=== PATIENT | male | born 1975 | race Caucasian/White ===

== ENCOUNTER → 2017-01-23 | Outpatient (CLI) | payer MEDICAID ==
--- NOTE | 2017-01-23 10:30 | XR ---
EXAMINATION TYPE: XR chest 2V DATE OF EXAM: 01/23/2017 COMPARISON: NONE TECHNIQUE: PA and lateral views submitted. HISTORY: Cough, fever and congestion FINDINGS: The lungs are clear and there is no pneumothorax, pleural effusion, or focal pneumonia. Curvature o f the spine noted. Biapical pleural thickening. IMPRESSION: 1. No acute process.
== END | disposition home or self-care (01) ==
LOC: RADXRMAIN 10:09
PROVIDERS: ATTEND Internal Medicine
DX: R06.02 Shortness of breath (principal)
CPT/HCPCS: 71020

== ENCOUNTER → 2017-02-20 | Outpatient (CLI) | payer MEDICAID ==
--- NOTE | 2017-02-20 10:22 | XR ---
Panorex History: Impacted tooth, K01.1 Panorex view is submitted No comparisons Impacted tooth noted on the right, last molar within the mandible. No air-fluid level within maxillar y sinuses, bone mineralization is maintained. IMPRESSION: Findings compatible with patient's history
== END | disposition home or self-care (01) ==
LOC: RADXRMAIN 09:12
DX: K01.1 Impacted teeth (principal)
CPT/HCPCS: 70355

== ENCOUNTER → 2017-07-19 | Outpatient (CLI) | payer MEDICAID ==
[2017-07-19 10:15] LABS: HCT 52.5 % (39.0-53.0); HGB 16.9 gm/dL (13.0-17.5); MCH 30.2 pg (25.0-35.0); MCHC 32.3 g/dL (31.0-37.0); MCV 93.6 fL (80.0-100.0); Mean Platelet Volume 7.3; Platelet Count 206 k/uL (150-450); RDW 12.7 % (11.5-15.5); WBC 7.5 k/uL (3.8-10.6)
[2017-07-19 10:39] LABS: ALT 42 U/L (21-72); AST 26 U/L (17-59); Albumin 4.3 g/dL (3.5-5.0); Alkaline Phosphatase 64 U/L (38-126); Anion Gap 8 mmol/L; Blood Urea Nitrogen 20 mg/dL (9-20); Calcium 9.7 mg/dL (8.4-10.2); Carbon Dioxide 26 mmol/L (22-30); Chloride 106 mmol/L (98-107); Cholesterol 248 mg/dL (<200); Glucose 98 mg/dL (74-99); HDL Cholesterol 56 mg/dL (40-60); LDL Cholesterol,Calculated 155 mg/dL (0-99); Potassium 4.7 mmol/L (3.5-5.1); Sodium 140 mmol/L (137-145); Total Bilirubin 0.8 mg/dL (0.2-1.3); Total Protein 7.5 g/dL (6.3-8.2); Triglycerides 183 mg/dL (<150)
== END | disposition home or self-care (01) ==
LOC: RADXRMAIN 08:34
PROVIDERS: ATTEND Family Medicine
DX: Z00.00 Encounter for general adult medical examination without abnormal findings (principal)
CPT/HCPCS: 36415; 80053; 80061; 85027

== ENCOUNTER → 2018-08-04 | Outpatient (CLI) | payer MEDICAID ==
[2018-08-04 08:14] LABS: HCT 50.2 % (39.0-53.0); HGB 16.2 gm/dL (13.0-17.5); MCH 30.2 pg (25.0-35.0); MCHC 32.2 g/dL (31.0-37.0); MCV 93.8 fL (80.0-100.0); Mean Platelet Volume 7.4; Platelet Count 206 k/uL (150-450); RBC 5.35 m/uL (4.30-5.90); RDW 13.2 % (11.5-15.5); WBC 7.4 k/uL (3.8-10.6)
[2018-08-04 08:41] LABS: Appearance,Urine Clear (Clear); Bilirubin,Urine Negative (Negative); Blood,Urine Negative (Negative); Color,Urine Yellow; Glucose,Urine (UA) Negative (Negative); Ketones,Urine Negative (Negative); Leukocyte Esterase,Urine Negative (Negative); Nitrite,Urine Negative (Negative); PH, Urine 5.5 (5.0-8.0); Protein,Urine Negative (Negative); Specific Gravity,Urine 1.017 (1.001-1.035); Urobilinogen,Urine <2.0 mg/dL (<2.0)
[2018-08-04 17:38] LABS: Albumin/Globulin Ratio 1.74 (1.20-2.10); Anion Gap 9.4 mmol/L (4.00-12.00); Calcium 8.6 mg/dL (8.7-10.3); Carbon Dioxide 24.6 mmol/L (21.6-31.8); Globulin 2.3 g/dL (1.6-3.3); LDL Cholesterol,Calculated 94.8 mg/dL (0.0-131.0); Potassium 4.3 mmol/L (3.5-5.5); Total Bilirubin 0.8 mg/dL (0.2-1.2); Total Protein 6.3 g/dL (6.2-8.2); VLDL Calculation 45.2 mg/dL (5.00-40.00)
== END | disposition home or self-care (01) ==
LOC: LABWHC1 07:24
PROVIDERS: ATTEND Family Medicine
DX: Z00.01 Encounter for general adult medical examination with abnormal findings (principal)
CPT/HCPCS: 36415; 80053; 80061; 81003; 85027

== ENCOUNTER → 2019-08-06 | Outpatient (CLI) | payer MEDICAID ==
[2019-08-06 07:39] LABS: HCT 47.2 % (39.0-53.0); HGB 15.9 gm/dL (13.0-17.5); MCH 31.3 pg (25.0-35.0); MCHC 33.7 g/dL (31.0-37.0); MCV 92.9 fL (80.0-100.0); Mean Platelet Volume 8.1; Platelet Count 238 k/uL (150-450); RBC 5.08 m/uL (4.30-5.90); RDW 12.6 % (11.5-15.5); WBC 6.2 k/uL (3.8-10.6)
[2019-08-06 12:02] LABS: African American GFR (CKD) 94.8 (60.0-200.0); Albumin 4.2 g/dL (3.80-4.90); Albumin/Globulin Ratio 1.91 (1.60-3.17); Anion Gap 7.7 mmol/L (4.00-12.00); BUN/Creat Ratio 21.82 Ratio (12.00-20.00); Carbon Dioxide 25.3 mmol/L (21.6-31.8); Chol/HDL Ratio 4.06; Globulin 2.2 g/dL (1.6-3.3); LDL Cholesterol,Calculated 113.6 mg/dL (0.0-131.0); Non-African American GFR(CKD) 81.8 (60.0-200.0); Potassium 4.2 mmol/L (3.5-5.5); Total Bilirubin 0.5 mg/dL (0.3-1.2); Total Protein 6.4 g/dL (6.2-8.2); VLDL Calculation 33.4 mg/dL (5.00-40.00)
== END | disposition home or self-care (01) ==
LOC: LABWHC1 07:05
PROVIDERS: ATTEND Family Medicine
DX: Z00.01 Encounter for general adult medical examination with abnormal findings (principal)
CPT/HCPCS: 36415; 80053; 80061; 85027

== ENCOUNTER → 2019-09-25 | Outpatient (CLI) | payer MEDICAID ==
--- NOTE | 2019-09-25 12:09 | XR ---
EXAMINATION TYPE: XR AC joint BILAT DATE OF EXAM: 09/25/2019 COMPARISON: NONE HISTORY: Pain TECHNIQUE: 2 views of the AC joints are submitted bilaterally with and without weights. FINDINGS: AC joint distance is within normal limits and symmetric. No hypertrophic spurring. May be s light elevation of the clavicle however it is symmetric and therefore likely normal in appearance. IMPRESSION: AC joint distance is a symmetric and within normal limits. No acute fracture or dislocati on. If symptoms persist consider MRI.
--- NOTE | 2019-09-25 12:12 | XR ---
EXAMINATION TYPE: XR cervical spine comp DATE OF EXAM: 09/25/2019 COMPARISON: NONE HISTORY: Pain TECHNIQUE: Four views are submitted. FINDINGS: The odontoid is intact. There are no compression deformities. The prevertebral soft tissue structur es are within normal limits. There is anterior hypertrophic spurring at C5-6 and C6-C7. Mild facet a rthropathy. IMPRESSION: 1. No acute process. Mild hypertrophic spurring C5-6 and C6-C7.
== END | disposition home or self-care (01) ==
LOC: RADXRMAIN 11:34
PROVIDERS: ATTEND Radiology Diagnostic Radiology
DX: M46.02 Spinal enthesopathy, cervical region (principal); M25.512 Pain in left shoulder; M25.511 Pain in right shoulder
CPT/HCPCS: 72050; 73050

== ENCOUNTER → 2019-11-28 | Outpatient (CLI) | payer MEDICAID ==
--- NOTE | 2019-11-28 10:21 | XR ---
EXAMINATION TYPE: XR shoulder complete RT , 3 VIEWS DATE OF EXAM ORDERED: 11/28/2019 HISTORY: PAIN. COMPARISON: None. FINDINGS: No fracture, dislocation or other acute osseous lesion is seen. The coracoclavicular dista nce is normal. IMPRESSION: NO ACUTE OSSEOUS ABNORMALITY.
== END | disposition home or self-care (01) ==
LOC: RADXRMAIN 09:30
PROVIDERS: ATTEND Physician Assistant
DX: M25.511 Pain in right shoulder (principal)

== ENCOUNTER → 2020-01-04 | Outpatient (CLI) | payer MEDICAID ==
--- NOTE | 2020-01-04 21:36 | MR ---
EXAMINATION TYPE: MR shoulder RT wo con DATE OF EXAM: 01/04/2020 COMPARISON: Plain film 11/28/2019 HISTORY: Rt shoulder pain, pushing injury/repetitive motion 4 months ago TECHNIQUE: Multiplanar, multisequence imaging of the right shoulder is performed without contrast. FINDINGS: Rotator Cuff: Thickened appearance, increased signal may be indicative of tendinosis Acromioclavicular Joint: Some arthropathy changes present causing some mass effect on the musculotend inous junction of supraspinatus. Distal acromion is downturned, small spur suspected Glenohumeral Joint: Intact Labrum: There is some increased signal associated with the superior labrum, there could be an underly ing SLAP lesion Biceps Tendon: The long head of biceps is in normal location within bicipital groove, fluid is presen t along the tendon. Bone marrow signal: Some fluid signal is present consistent with pseudocysts in the humeral head post eriorly Other: Fluid signal is present in the subacromial subdeltoid bursa IMPRESSION: Correlate for possible impingement with tendinosis. Difficult to exclude superior labral tear, SLAP l esion. Possible biceps tendinosis. Acromioclavicular joint arthropathy.
== END | disposition home or self-care (01) ==
LOC: RADMRIMAIN 17:58
PROVIDERS: ATTEND Orthopaedic Surgery
DX: M12.811 Other specific arthropathies, not elsewhere classified, right shoulder (principal)

== ENCOUNTER → 2020-08-04 | Outpatient (CLI) | payer MEDICAID ==
[2020-08-04 07:53] LABS: HCT 50.6 % (39.0-53.0); HGB 16.5 gm/dL (13.0-17.5); MCH 30.4 pg (25.0-35.0); MCHC 32.6 g/dL (31.0-37.0); MCV 93.2 fL (80.0-100.0); Mean Platelet Volume 7.5; Platelet Count 233 k/uL (150-450); RBC 5.43 m/uL (4.30-5.90); RDW 12.9 % (11.5-15.5); WBC 5.8 k/uL (3.8-10.6)
[2020-08-04 10:54] LABS: African American GFR (CKD) 105.6 (60.0-200.0); Albumin 4.2 g/dL (3.80-4.90); Albumin/Globulin Ratio 1.75 (1.60-3.17); Anion Gap 8.4 mmol/L (4.00-12.00); Calcium 9.1 mg/dL (8.7-10.3); Carbon Dioxide 25.6 mmol/L (21.6-31.8); Chol/HDL Ratio 4.48; Globulin 2.4 g/dL (1.6-3.3); LDL Cholesterol,Calculated 136.2 mg/dL (0.0-131.0); Non-African American GFR(CKD) 91.1 (60.0-200.0); Potassium 4.2 mmol/L (3.5-5.5); Total Bilirubin 0.6 mg/dL (0.2-1.2); Total Protein 6.6 g/dL (6.2-8.2); VLDL Calculation 30.8 mg/dL (5.00-40.00)
== END | disposition home or self-care (01) ==
LOC: LABWHC1 07:27
PROVIDERS: ATTEND Family Medicine
DX: Z00.01 Encounter for general adult medical examination with abnormal findings (principal)
CPT/HCPCS: 36415; 80053; 80061; 85027

== ENCOUNTER 2020-10-25 07:29 | Emergency (ER) | payer MEDICAID ==
[2020-10-25 07:52] VITALS: BP 127/89; PULSE 86; RESP 18; TEMP 98.3
[2020-10-25] MEDS ORDERED: ACETAMINOPHEN TAB 500 MG TAB PO STA (08:23)
[2020-10-25] MEDS ORDERED: DEXAMETHASONE SOD PHOSPHATE 10 MG/ML 1 ML VIAL IV STA (08:24)
--- NOTE | 2020-10-25 08:34 | ED ---
General Adult HPI - General Chief complaint: Fever Stated complaint: Covid+, worsening symptoms Time Seen by Provider: 10/25/20 08:09 Source: patient Mode of arrival: ambulatory Limitations: no limitations - History of Present Illness Initial comments: 45-year-old male with a past medical history of GERD presents to the emergency room for a chief complaint of not feeling well. Patient reports that he tested positive for Covid 12 days ago at [employer]. He is supposed to be going back to work but is not feeling better and is not sure to do. States that he is still getting fevers at night and has not been able to sleep well. He feels lightheaded at times. He thinks he is dehydrated as he is having diarrhea. He states his cough is improving, he does not have shortness of breath. Denies chest pain. She has had headaches on and off. Patient started on Augmentin a few days ago as well as he is having sinus congestion. Patient has no other complaints at this time including shortness of breath, chest pain, abdominal pain, nausea or vomiting, or visual changes. - Related Data Home Medications Medication Instructions Recorded Confirmed Omeprazole [PriLOSEC] 20 mg PO AC-BRKFST 12/16/15 10/25/20 Benzonatate [Tessalon Perles] 100 mg PO TID PRN 10/25/20 10/25/20 Previous Rx's Medication Instructions Recorded Amoxicillin/Potassium Clav 1 tab PO Q12HR #14 tab 12/16/15 [Augmentin 875-125 Tablet] Albuterol Inhaler [Ventolin Hfa 2 puff INHALATION RT-QID PRN #1 10/25/20 Inhaler] inhaler Azithromycin [Zithromax Z-pack (6 250 mg PO DIRECTED #6 tab 10/25/20 tabs)] Fluticasone Nasal [place] [Flonase 1 spray EA NOSTRIL DAILY 7 Days #1 10/25/20 Nasal [place]] bottle Allergies Allergy/AdvReac Type Severity Reaction Status Date / Time No Known Allergies Allergy Verified 10/25/20 10:20 Review of Systems ROS Statement: Those systems with pertinent positive or pertinent negative responses have been documented in the HPI. ROS Other: All systems not noted in ROS Statement are negative. Past Medical History Past Medical History: GERD/Reflux History of Any Multi-Drug Resistant Organisms: None Reported Past Surgical History: No Surgical Hx Reported Past Psychological History: No Psychological Hx Reported Smoking Status: Never smoker Past Alcohol Use History: Occasional Past Drug Use History: None Reported General Exam Limitations: no limitations General appearance: alert, in no apparent distress Head exam: Present: atraumatic, normocephalic, normal inspection Eye exam: Present: normal appearance, PERRL, EOMI. Absent: scleral icterus, conjunctival injection, periorbital swelling ENT exam: Present: normal exam, mucous membranes moist Neck exam: Present: normal inspection, full ROM. Absent: tenderness, meningismus, lymphadenopathy Respiratory exam: Present: normal lung sounds bilaterally. Absent: respiratory distress, wheezes, rales, rhonchi, stridor Cardiovascular Exam: Present: regular rate, normal rhythm, normal heart sounds GI/Abdominal exam: Present: soft, normal bowel sounds. Absent: distended, tenderness, guarding, rebound, rigid Neurological exam: Present: alert Course Vital Signs 10/25/20 07:48 Temperature 98.3 F Pulse Rate 86 Respiratory 18 Rate Blood Pressure 127/89 O2 Sat by Pulse 98 Oximetry Medical Decision Making - Medical Decision Making Vitals are stable. Patient well-appearing, stable. CBC CMP unremarkable. CRP slightly elevated 15.8 likely secondary to Covid. Chest x-ray does show a vague increased density right perihilar region which may reflect a developing pneumonia. Patient was given a liter of fluids. Does feel somewhat better at this time. Continues to have no shortness of breath. We will try supportive care for patient with Flonase, albuterol inhaler. He will switch antibiotics from Augmentin to azithromycin given he believes this is worsening his diarrhea. He will follow up with primary care. He will return for any worsening symptoms. - Lab Data Result diagrams: 10/25/20 08:47 10/25/20 08:47 Lab Results 10/25/20 10/25/20 10/25/20 Range/Units 08:47 08:47 08:47 WBC 4.6 (3.8-10.6) k/uL RBC 5.11 (4.30-5.90) m/uL Hgb 16.1 (13.0-17.5) gm/dL Hct 45.9 (39.0-53.0) % MCV 89.9 (80.0-100.0) fL MCH 31.5 (25.0-35.0) pg MCHC 35.1 (31.0-37.0) g/dL RDW 12.4 (11.5-15.5) % Plt Count 158 (150-450) k/uL MPV 8.0 Neutrophils % 68 % Lymphocytes % 22 % Monocytes % 7 % Eosinophils % 1 % Basophils % 1 % Neutrophils # 3.1 (1.3-7.7) k/uL Lymphocytes # 1.0 (1.0-4.8) k/uL Monocytes # 0.3 (0-1.0) k/uL Eosinophils # 0.0 (0-0.7) k/uL Basophils # 0.0 (0-0.2) k/uL PT 9.9 (9.0-12.0) sec INR 0.9 (<1.2) APTT 22.4 (22.0-30.0) sec Sodium 140 (137-145) mmol/L Potassium 4.5 (3.5-5.1) mmol/L Chloride 104 (98-107) mmol/L Carbon Dioxide 27 (22-30) mmol/L Anion Gap 9 mmol/L BUN 18 (9-20) mg/dL Creatinine 0.91 (0.66-1.25) mg/dL Est GFR (CKD-EPI)AfAm >90 (>60 ml/min/1.73 sqM) Est GFR (CKD-EPI)NonAf >90 (>60 ml/min/1.73 sqM) Glucose 110 H (74-99) mg/dL Calcium 8.9 (8.4-10.2) mg/dL Magnesium 2.0 (1.6-2.3) mg/dL Total Bilirubin 0.5 (0.2-1.3) mg/dL AST 35 (17-59) U/L ALT 42 (4-49) U/L Alkaline Phosphatase 65 (38-126) U/L Lactate Dehydrogenase 593 (313-618) U/L C-Reactive Protein 15.8 H (<10.0) mg/L Total Protein 6.8 (6.3-8.2) g/dL Albumin 3.8 (3.5-5.0) g/dL Disposition Clinical Impression: COVID-19, Elevated C-reactive protein (CRP), Pneumonia due to COVID-19 virus Disposition: HOME SELF-CARE Condition: Good Instructions (If sedation given, give patient instructions): Fever in Adults (ED), Coronavirus Disease 2019 (COVID-19) Additional Instructions: Please continue alternating Motrin and Tylenol up to every 3 hours. Drink plenty of fluids. Take medications as directed. Follow up with primary care. Return to the emergency room for any worsening symptoms. Prescriptions: Fluticasone Nasal [place] [Flonase Nasal [place]] 1 spray EA NOSTRIL DAILY 7 Days #1 bottle Albuterol Inhaler [Ventolin Hfa Inhaler] 2 puff INHALATION RT-QID PRN #1 inhaler PRN Reason: Shortness Of Breath Azithromycin [Zithromax Z-pack (6 tabs)] 250 mg PO DIRECTED #6 tab Is patient prescribed a controlled substance at d/c from ED?: No Referrals: Olivier Alves MD [Primary Care Provider] - 1-2 days Time of Disposition: 11:15
[2020-10-25 09:17] LABS: Basophils % (A) 1 %; Eosinophils % (A) 1 %; HCT 45.9 % (39.0-53.0); HGB 16.1 gm/dL (13.0-17.5); Lymphocytes % (A) 22 %; MCH 31.5 pg (25.0-35.0); MCHC 35.1 g/dL (31.0-37.0); MCV 89.9 fL (80.0-100.0); Monocytes # (A) 0.3 k/uL (0-1.0); Monocytes % (A) 7 %; Neutrophils # (A) 3.1 k/uL (1.3-7.7); Neutrophils % (A) 68 %; Platelet Count 158 k/uL (150-450); RBC 5.11 m/uL (4.30-5.90); RDW 12.4 % (11.5-15.5); WBC 4.6 k/uL (3.8-10.6)
--- NOTE | 2020-10-25 09:18 | XR ---
EXAMINATION TYPE: XR chest 1V portable DATE OF EXAM: 10/25/2020 COMPARISON: 01/23/2017 HISTORY: Suspected COVID-19 pneumonia TECHNIQUE: Single frontal view of the chest is obtained. FINDINGS: Vague increased density right perihilar region may reflect developing pneumonia. Correlate clinically . The cardiac silhouette size is within normal limits. The osseous structures are intact. IMPRESSION: 1. Vague increased density right perihilar region may reflect developing pneumonia. Correlate clinic ally.
[2020-10-25 09:28] LABS: INR 0.9 (<1.2); Partial Thromboplastin Time 22.4 sec (22.0-30.0); Prothrombin Time 9.9 sec (9.0-12.0)
[2020-10-25 09:47] LABS: ALT 42 U/L (4-49); AST 35 U/L (17-59); African American GFR (CKD) >90 (>60 ml/min/1.73 sqM); Albumin 3.8 g/dL (3.5-5.0); Alkaline Phosphatase 65 U/L (38-126); Anion Gap 9 mmol/L; Blood Urea Nitrogen 18 mg/dL (9-20); C Reactive Protein 15.8 mg/L (<10.0); Calcium 8.9 mg/dL (8.4-10.2); Carbon Dioxide 27 mmol/L (22-30); Chloride 104 mmol/L (98-107); Glucose 110 mg/dL (74-99); LDH 593 U/L (313-618); Non-African American GFR(CKD) >90 (>60 ml/min/1.73 sqM); Potassium 4.5 mmol/L (3.5-5.1); Sodium 140 mmol/L (137-145); Total Bilirubin 0.5 mg/dL (0.2-1.3); Total Protein 6.8 g/dL (6.3-8.2)
[2020-10-25] MEDS ORDERED: SODIUM CHLORIDE 0.9% 1,000 ML IV STA (10:08)
[2020-10-25 19:02] LABS: Ferritin 1520.9 ng/mL (22.0-322.0)
== END 2020-10-25 12:04 | disposition home or self-care (01) ==
LOC: EC 07:29
DX: J12.82 Pneumonia due to coronavirus disease 2019 (principal); U07.1 COVID-19; R79.82 Elevated C-reactive protein (CRP); R19.7 Diarrhea, unspecified; K21.9 Gastro-esophageal reflux disease without esophagitis; Z79.899 Other long term (current) drug therapy
CPT/HCPCS: 36415; 80053; 82728; 83615; 83735; 85025; 85610; 85730; 86140; 84145; 71045; 96361; 99283; 96374; J1100

== ENCOUNTER → 2021-07-26 | Outpatient (CLI) | payer MEDICAID ==
[2021-07-26 11:02] LABS: ALT 41 U/L (10-49); AST 27 U/L (14-35); African American GFR (CKD) 95.6 (60.0-200.0); Albumin 4.4 g/dL (3.8-4.9); Albumin/Globulin Ratio 1.78 (1.60-3.17); Alkaline Phosphatase 71 U/L (41-126); BUN/Creat Ratio 16.02 Ratio (12.00-20.00); Blood Urea Nitrogen 17.3 mg/dL (9.0-27.0); Calcium 9.2 mg/dL (8.7-10.3); Chloride 105 mmol/L (96-109); Chol/HDL Ratio 4.54 Ratio; Globulin 2.5 g/dL (1.6-3.3); Glucose 100 mg/dL (70-110); LDL Cholesterol,Calculated 190.5 mg/dL (0.0-131.0); Non-African American GFR(CKD) 82.5 (60.0-200.0); Potassium 4.3 mmol/L (3.5-5.5); Sodium 140 mmol/L (135-145); Total Protein 6.9 g/dL (6.2-8.2)
[2021-07-26 11:03] LABS: HCT 49.8 % (39.6-50.0); HGB 16.2 g/dL (13.0-17.0); MCH 30.4 pg (27.0-32.0); MCHC 32.5 g/dL (32.0-37.0); MCV 93.4 fL (80.0-97.0); Mean Platelet Volume 10.7 fL (9.5-12.2); Platelet Count 235 X 10*3/uL (140-440); RBC 5.33 X 10*6/uL (4.40-5.60); RDW 12.5 % (11.5-14.5); WBC 5.55 X 10*3/uL (4.50-10.00)
== END | disposition home or self-care (01) ==
LOC: LABWHC1 07:22
PROVIDERS: ATTEND Family Medicine
DX: Z00.01 Encounter for general adult medical examination with abnormal findings (principal); U07.1 COVID-19
CPT/HCPCS: 36415; 80053; 80061; 85027; 86769

== ENCOUNTER → 2022-01-06 | Outpatient (CLI) | payer MEDICAID | END | disposition home or self-care (01) | LOC: LABWHC1 10:34 | PROVIDERS: ATTEND Family Medicine | DX: U07.1 COVID-19 (principal) | CPT/HCPCS: 36415; 86769 ==

== ENCOUNTER → 2022-03-25 | Outpatient (CLI) | payer MEDICAID, OTHER | END | disposition home or self-care (01) | LOC: LABMAIN 10:41 | PROVIDERS: ATTEND Family Medicine | DX: U07.1 COVID-19 (principal) | CPT/HCPCS: 87635 ==

== ENCOUNTER → 2022-08-01 | Outpatient (CLI) | payer MEDICAID ==
[2022-08-01 10:20] LABS: Basophils # (A) 0.05 X 10*3/uL (0.00-0.10); Basophils % (A) 0.8 %; Eosinophils # (A) 0.16 X 10*3/uL (0.04-0.35); Eosinophils % (A) 2.7 %; HCT 49.9 % (39.6-50.0); HGB 16.2 g/dL (13.0-17.0); Immature Grans, Automated 0.3 %; Lymphocytes # (A) 1.81 X 10*3/uL (0.90-5.00); Lymphocytes % (A) 30.3 %; MCH 30.3 pg (27.0-32.0); MCHC 32.5 g/dL (32.0-37.0); MCV 93.4 fL (80.0-97.0); Mean Platelet Volume 10.5 fL (9.5-12.2); Monocytes # (A) 0.54 X 10*3/uL (0.20-1.00); NRBC Per 100 WBC 0 /100 WBCS (0.0-0.0); Neutrophils # (A) 3.39 X 10*3/uL (1.80-7.70); Neutrophils % (A) 56.9 %; Platelet Count 247 X 10*3/uL (140-440); RBC 5.34 X 10*6/uL (4.40-5.60); RDW 12.7 % (11.5-14.5); WBC 5.97 X 10*3/uL (4.50-10.00)
[2022-08-01 10:44] LABS: ALT 39 U/L (10-49); AST 29 U/L (14-35); African American GFR (CKD) 83.5 (60.0-200.0); Albumin 4.4 g/dL (3.8-4.9); Albumin/Globulin Ratio 1.63 (1.60-3.17); Alkaline Phosphatase 72 U/L (41-126); BUN/Creat Ratio 20.75 Ratio (12.00-20.00); Blood Urea Nitrogen 24.9 mg/dL (9.0-27.0); Calcium 9.4 mg/dL (8.7-10.3); Carbon Dioxide 28.8 mmol/L (20.0-27.5); Chloride 104 mmol/L (96-109); Chol/HDL Ratio 4.65 Ratio; Globulin 2.7 g/dL (1.6-3.3); Glucose 102 mg/dL (70-110); Non-African American GFR(CKD) 72.1 (60.0-200.0); Potassium 4.6 mmol/L (3.5-5.5); Sodium 140 mmol/L (135-145); Total Protein 7.1 g/dL (6.2-8.2)
== END | disposition home or self-care (01) ==
LOC: LABWHC1 07:17
PROVIDERS: ATTEND Family Medicine
DX: Z00.01 Encounter for general adult medical examination with abnormal findings (principal)
CPT/HCPCS: 36415; 80053; 80061; 85025

== ENCOUNTER → 2023-07-27 | Outpatient (CLI) | payer MEDICAID ==
[2023-07-27 13:38] LABS: HCT 46.9 % (39.6-50.0); HGB 15.6 g/dL (13.0-17.0); MCHC 33.3 g/dL (32.0-37.0); MCV 93.2 FL (80.0-97.0); Mean Platelet Volume 10.9 FL (9.5-12.2); NRBC Per 100 WBC 0 X 10*3/uL (0.00-0.01); Platelet Count 237 X 10*3/uL (140-440); RBC 5.03 X 10*6/uL (4.40-5.60); RDW 13.2 % (11.5-14.5); WBC 6.25 X 10*3/uL (4.50-10.00)
[2023-07-27 13:57] LABS: ALT 39 U/L (10-49); AST 29 U/L (14-35); Albumin 4.2 g/dL (3.8-4.9); Albumin/Globulin Ratio 1.62 Ratio (1.60-3.17); Alkaline Phosphatase 70 U/L (41-126); Blood Urea Nitrogen 23.1 mg/dL (9.0-27.0); Carbon Dioxide 25.8 mmol/L (21.6-31.8); Chloride 104 mmol/L (96-109); Chol/HDL Ratio 4.72 Ratio; Globulin 2.6 g/dL (1.6-3.3); Glucose 103 mg/dL (70-110); LDL Cholesterol,Calculated 157.6 mg/dL (0.0-131.0); Potassium 4.5 mmol/L (3.5-5.5); Sodium 139 mmol/L (135-145); Total Bilirubin 0.5 mg/dL (0.3-1.2); Total Protein 6.8 g/dL (6.2-8.2)
== END | disposition home or self-care (01) ==
LOC: LABWHC1 07:53
PROVIDERS: ATTEND Family Medicine
DX: Z00.01 Encounter for general adult medical examination with abnormal findings (principal)
CPT/HCPCS: 36415; 80053; 80061; 85027

== ENCOUNTER → 2024-07-30 | Outpatient (CLI) | payer MEDICAID ==
[2024-07-30 09:21] LABS: HGB 16.7 gm/dL (13.0-17.5); MCH 31.3 pg (25.0-35.0); MCHC 34.2 g/dL (31.0-37.0); MCV 91.8 fL (80.0-100.0); Mean Platelet Volume 8.1; Platelet Count 219 k/uL (150-450); RBC 5.34 m/uL (4.30-5.90); RDW 13.3 % (11.5-15.5); WBC 6.3 k/uL (3.8-10.6)
[2024-07-30 09:31] LABS: ALT 48 U/L (4-49); AST 35 U/L (17-59); African American GFR (CKD) 88 (>60 ml/min/1.73 sqM); Albumin 4.6 g/dL (3.5-5.0); Albumin/Globulin Ratio 1.5; Alkaline Phosphatase 77 U/L (38-126); Anion Gap 6 mmol/L; Blood Urea Nitrogen 27 mg/dL (9-20); Calcium 9.6 mg/dL (8.4-10.2); Carbon Dioxide 30 mmol/L (22-30); Chloride 104 mmol/L (98-107); Globulin 3.1 g/dL; Glucose 107 mg/dL (74-99); Non-African American GFR(CKD) 76 (>60 ml/min/1.73 sqM); Potassium 4.9 mmol/L (3.5-5.1); Sodium 140 mmol/L (137-145); Total Bilirubin 0.5 mg/dL (0.2-1.3); Total Protein 7.7 g/dL (6.3-8.2)
[2024-07-30 15:13] LABS: Chol/HDL Ratio 4.73 Ratio; LDL Cholesterol,Calculated 193.4 mg/dL (0.0-131.0)
== END | disposition home or self-care (01) ==
LOC: LABWHC1 08:19
PROVIDERS: ATTEND Family Medicine
DX: Z00.01 Encounter for general adult medical examination with abnormal findings (principal)
CPT/HCPCS: 36415; 80053; 80061; 85027